=== PATIENT | female | born 1950 | race Caucasian/White ===

== ENCOUNTER 2017-03-15 09:04 | Emergency (ER) | payer MEDICARE, OTHER ==
[~2017-03-15] VITALS: Ht 167.6 cm; Wt 113.6 kg
[~2017-03-15 09:04] MED LIST: BENZ100C8 PO; CALC600T12 PO; CODE118S2 PO; CYCL5TAB PO; FLUT1DIS5 INHALATION; HYDR-3090 PO; MULT-1073 PO; OMEP40CA36 PO; PRD5T PO; RANI300C PO; SIMV40TA5 PO
[2017-03-15 09:07] VITALS: BP 145/88; PULSE 88; RESP 20; O2SAT 96
--- NOTE | 2017-03-15 09:15 | ED.REPORT ---
HPI-Extremity Problem Lower Date of Service Mar 15, 2017 ED Provider: Dr. Oliver Pt is a 67 year old female with a hx of pulmonary fibrosis presenting to the ED complaining of left knee pain and swelling onset 1 week ago, worsened yesterday. She only reports pain when she stands on it, and she is able to bend it. Denies trauma, fever, denies warmth to the area nice history of gout. Nursing Notes Stated Complaint: KNEE SWOLLEN Chief Complaint: Extremity Trauma Nursing Notes Reviewed: Yes Allergies: Coded Allergies: erythromycin base (Verified Allergy, Unknown, 10/07/15) Scheduled Calcium Carbonate (Calcium) 600 Mg Tablet 1,500 MG PO DAILY Fluticasone/Salmeterol (Advair 500-50 Diskus) 1 Each Disk.w.dev 1 PUFF INHALATION BID Omeprazole (Omeprazole) 40 Mg Capsule.dr 40 MG PO DAILY Prednisone (PredniSONE) 5 Mg Tab 5 MG PO DAILY Ranitidine (Ranitidine) 300 Mg Capsule 300 MG PO DAILY Simvastatin (Simvastatin) 40 Mg Tablet 40 MG PO HS Scheduled PRN Benzonatate (Benzonatate) 100 Mg Capsule 100 MG PO TID PRN PRN For Cough Cyclobenzaprine (Cyclobenzaprine) 5 Mg Tablet 5 MG PO TID PRN PRN Spasm Hydrocodone-Acetaminophen 5-300 mg (Hydrocodone-Acetaminophen 5-300 mg) 1 Each Tablet 1 TABLET PO Q4H PRN PRN For Pain Promethazine/Codeine Syrup (Promethazine/Codeine Syrup) 5 Ml Syrup 5 ML PO Q6H NTE 30 ML/24 RAMIREZ PRN PRN COU Miscellaneous Medications Multivits-Min/FA/Lycopene/Lut (Centrum Silver Tablet) 1 Each Tablet 1 EACH PO General Time Seen by MD: 09:15 Chief Complaint Knee injury left Hx Obtained From: Patient Arrived By: Walk-in Onset Occurred: 1 week ago Symptom Duration: Since onset Location: : Knee left Quality: Painful Severity: Current: Severe Severity: Maximum: Severe Recent Healthcare: No recent doctor visit, No recent hospitalization Similar Sx Previous: No Past Medical History Past Medical History Pulmonary fibrosis Breast cancer x2 Past Surgical History none reported Smoking History Never Smoker Social History Alcohol Use: "Social" Drug Use: Denies drug use Ambulatory Status Independent Review of Systems Musculoskeletal: Reports: Joint pain (Left knee), Joint swelling Complete sys rev & neg: except as marked. Respiratory: Denies: Shortness of breath GI: Denies: Vomiting Physical Exam Initial Vital Signs Vital Signs (First) Date Time Temp Pulse Resp B/P Pulse Ox O2 Delivery O2 Flow Rate FiO2 03/15/17 09:07 36.2 88 20 145/88 96 Initial VS: Reviewed General/Constitutional: Well-developed, Well-nourished Head / Eyes: Atraumatic, Normocephalic, PERRL ENT: Mucous membranes moist, Conjunctiva normal, No scleral icterus Respiratory: No respiratory distress Abdomen / GI: No distention Upper Extremities: Vascular intact, Neuro intact, No swelling, No tenderness Skin: Warm, Dry, No cyanosis Neurologic: Alert, Oriented, Nonfocal Psychiatric: Mood/affect normal, Behavior normal, Normal thought content Lower Extremity / Pelvis / MS: No erythema, No deformity, Neurologic intact, Vascular intact Left Knee: Positive: Joint effusion present (small), ROM reduced (Slightly, due to pain), Swelling present... (Mild), Negative: Erythema present, Warmth present Interpretation & Diagnostics Interpretation & Diagnostics: Synovial fluid negative for gout. No crystals. Lab Results Interpretation Test 03/15/17 10:55 03/15/17 11:00 Hold Urine Received (Received) Body Fluid Source Synovial fluid Body Fluid Color Straw (Clear) Body Fluid Appearance Hazy Body Fluid WBC 198/mm3 Body Fluid RBC 369/mm3 Body Fluid Polynuclear WBCs 6% Body Fluid Lymphocytes 30% Body Fluid Monocytes 64% Body Fluid Eosinophils 0% Body Fluid Basophils 0% X-Ray Interpretation Xray Interpretation: XRAY LEFT KNEE: IMPRESSION: No fracture or dislocation. Moderate to large knee joint effusion. Dictated by: Noam aMhoney M.D. on 03/15/2017 at 11:48 X-Ray Ordered: Knee left Interpretation / Wet Read by: Interpret - Radiologist Procedures Arthrocentesis Sterile prep with chlorhexidine x3. Lateral approach. Time: 10:25 Aspiration Performed by: ED physician Consent / Setup / Site Prep: Informed consent provided, Time-out performed, Hand hygiene observed, Stand sterile technique, Standard surgical scrub, Sterile drapes applied Indication: Evacuate effusion Skin Preparation Agent: Hibiclens - Chlorhexidine (x3) Local Anesthesia: Lidocaine 1% Joint Aspirated: Knee left Aspiration Needle: 16g Amount Aspirated: 25 ml (26 mL) Post-Procedure / Complications: Antibiotic oint applied, Dressing placed, No complications, Condition improved, Tolerated procedure well, Patient stable Re-Eval/Medical Decision Med Decision/Clinical Course Isolated monoarticular joint swelling without a history of trauma, synovial fluid was obtained under sterile conditions and not consistent with either gout or septic arthritis. She will be discharged with strict return and follow-up precautions. Re-Evaluation/Progress #1: Time of Eval: 09:40 Patient Status: Condition improved Re-Evaluation/Progress Note: Performed physical exam. Re-Evaluation/Progress #2: Time of Eval: 10:16 Patient Status: Condition improved Re-Evaluation/Progress Note: Discussed x ray results and plan for arthrocentesis of visualized effusion. Re-Evaluation/Progress #3: Time of Eval: 10:22 Patient Status: Condition improved Re-Evaluation/Progress Note: Risks and benefits of arthrocentesis discussed. Pt understands and agrees with procedure. Performed arthocentesis. Pt tolerated procedure well. 26 mL of fluid evacuated. Re-Evaluation/Progress #4: Time of Eval: 12:32 Patient Status: Condition improved Re-Evaluation/Progress Note: Discussed plan for discharge. Pt understands and agrees with plan. Counseled Regarding: Diagnosis, Lab results, Need for follow-up, When/why to return to ED Discharge & Departure Impression: Primary Impression: Effusion, left knee Disposition: Home Discharge Condition All VS Reviewed: Yes Condition: Improved Additional Instructions: There is no evidence of gout or a joint infection. Call your primary care doctor tomorrow morning for an appointment this week. Use Tylenol as needed for pain. Wear an Sukumar wrap around her knee and use a cane for support. Return to the ER if the knee begins to feel hot to the touch, or you develop a fever. Referrals: Gopal Tovar MD (PCP) Scribe Attestation Portions of this note were transcribed by Pallavi Perry. I, Dr. Oliver personally performed the history, physical exam and medical decision-making; I reviewed and confirmed the accuracy of the information in the transcribed note. Signed by: Keiko Garcia, 03/15/2017 at 1241. copies to: Gopal Tovar MD, Timothy S DO Mar 15, 2017 09:15 PALLAVI PERRY Mar 15, 2017 09:20
--- NOTE | 2017-03-15 11:50 | DRSVH ---
PROCEDURE: X-RAY LEFT KNEE, THREE VIEWS ([id number]) INDICATIONS: knee pain TECHNIQUE: 3 views of the knee were acquired. COMPARISON: None. FINDINGS: Bones: No fractures or dislocations. No suspicious bony lesions. Soft tissues: Moderate to large joint effusion. Prepatellar soft tissue thickening. No suspicious so ft tissue calcifications. IMPRESSION: No fracture or dislocation. Moderate to large knee joint effusion. Dictated by: Noam Mahoney M.D. on 03/15/2017 at 11:48 Approved by: Noam Mahoney M.D. on 03/15/2017 at 11:49
[2017-03-15 12:29] LABS: BFWBC 198 /mm3; MONOCYTES,BODY FLUID 64 %; OTHER CELLS,BODY FLUID 0
[2017-03-15 13:03] VITALS: BP 138/84; PULSE 90; RESP 18; O2SAT 97
== END 2017-03-15 13:05 | disposition home or self-care (01) ==
LOC: SED 09:04
DX: M25.462 Effusion, left knee (principal); Z88.1 Allergy status to other antibiotic agents